=== PATIENT | female | born 2005 | race Caucasian/White ===

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

== ENCOUNTER 2023-11-13 00:16 | Emergency (ER) | payer OTHER ==
[2023-11-13 00:27] VITALS: BP 122/78; PULSE 87; RESP 20; TEMP 97.9; BMI 23.8
== END 2023-11-13 02:29 | disposition home or self-care (01) ==
LOC: JER 00:16
DX: S91.331A Puncture wound without foreign body, right foot, initial encounter (principal); X58.XXXA Exposure to other specified factors, initial encounter
CPT/HCPCS: 73630-TC-RT-FY; 99283-25

== ENCOUNTER 2025-01-02 14:22 | Day surgery (SDC) | payer OTHER ==
[2025-01-02 16:02] VITALS: BMI 24.3
[2025-01-02 16:22] LABS: BASO % 0.3 % (0-2.0); EOS % 3.5 % (0-4.5); HEMATOCRIT 38.3 % (32.4-45.2); HEMOGLOBIN 12.6 GM/dL (10.7-15.3); LYMPH % 32.1 % (8-40); MCH 30.5 pg (25.7-33.7); MEAN CELL VOLUME 92.5 fl (80-96); MEAN PLT VOLUME 10.1 fl (7.5-11.1); MONO % 6.1 % (3.8-10.2); PLATELET COUNT 210 10^3/uL (134-434); RBC 4.14 M/mm3 (3.60-5.2); RDW 13.6 % (11.6-15.6); WHITE BLOOD COUNT 7.9 K/mm3 (4.0-10.0)
[2025-01-02 16:32] LABS: INR 1.11 (0.83-1.09); PROTHROMBIN TIME (PATIENT) 12.2 SEC (9.7-13.0)
[2025-01-02 16:34] LABS: ACTIVATED PTT 31.7 SECONDS (25.2-36.5)
[2025-01-02 17:06] LABS: BLOOD UREA NITROGEN 10.5 mg/dL (7-18); CALCIUM 9.1 mg/dL (8.5-10.1)
[2025-01-02 17:10] LABS: CREATININE 0.6 mg/dL (0.55-1.3)
[2025-01-02 17:11] LABS: BILIRUBIN,TOTAL 0.3 mg/dL (0.2-1); TOT PROT 7.8 g/dl (6.4-8.2)
[2025-01-02] MEDS ORDERED: ACETAMINOPHEN 325 MG TABLET (FP) ONE (18:07)
[2025-01-02] MEDS: ACETAMINOPHEN 500 MG TABLET (FP) PO ONE (18:09)
[2025-01-02] MEDS: LACTATED RINGERS SOLUTION 1,000 ML/1,000 ML INFUS.BAG IV SCH (20:05)
[2025-01-02] MEDS ORDERED: ONDANSETRON 4 MG/2 ML VIAL IVPUSH PRN ×3 (20:14→22:16)
[2025-01-02] MEDS ORDERED: LACTATED RINGERS SOLUTION 1,000 ML IV SCH (20:15)
[2025-01-02] MEDS ORDERED: PROPOFOL 20 ML ONE (20:38)
[2025-01-02] MEDS ORDERED: ROCURONIUM BROMIDE 50 MG/5 ML SYRINGE ONE (20:38)
[2025-01-02] MEDS ORDERED: SUCCINYLCHOLINE CHLORIDE 200 MG/10 ML SYRINGE ONE (20:38)
[2025-01-02] MEDS ORDERED: MIDAZOLAM HCL 2 MG/2 ML SINGLE DOSE VIAL ONE (20:38)
[2025-01-02] MEDS: ceFAZolin SODIUM 1 GM VIAL IVPB ONE (20:50)
[2025-01-02] MEDS: BUPIVACAINE HCL/PF 0.5% (5 MG/ML) 30 ML VIAL IJ ONE (21:38)
[2025-01-02] MEDS ORDERED: NEOSTIGMINE METHYLSULFATE 0.5 MG/1 ML - 10 ML MDV ONE (21:39)
[2025-01-02] MEDS ORDERED: oxyCODONE HCL 5 MG TABLET PO PRN ×2 (22:05→22:16)
[2025-01-02] MEDS ORDERED: IBUPROFEN 800 MG/8 ML IJ IVPB PRN (22:05)
[2025-01-02] MEDS ORDERED: IBUPROFEN 600 MG TABLET (FP) PO PRN (22:05)
[2025-01-02] MEDS ORDERED: ELECTROLYTE-148 SOLN 1,000 ML IV SCH ×2 (22:15)
[2025-01-02] MEDS: IBUPROFEN 800 MG/8 ML IJ IVPB PRN (23:22)
[2025-01-03] MEDS: IBUPROFEN 600 MG TABLET (FP) PO PRN (04:43)
[2025-01-03 06:03] LABS: HEMATOCRIT 29.7 % (32.4-45.2); MCH 31.2 pg (25.7-33.7); MCHC 33.5 g/dl (32.0-36.0); MEAN PLT VOLUME 9.3 fl (7.5-11.1); PLATELET COUNT 188 10^3/uL (134-434); RDW 12.8 % (11.6-15.6); WHITE BLOOD COUNT 7.3 K/mm3 (4.0-10.0)
[2025-01-03 10:15] VITALS: BP 107/76; PULSE 78; RESP 17; TEMP 98.4
[2025-01-03 12:31] LABS: BASO % 0.3 % (0-2.0); HEMATOCRIT 28.1 % (32.4-45.2); HEMOGLOBIN 9.2 GM/dL (10.7-15.3); LYMPH % 26.3 % (8-40); MCH 30.5 pg (25.7-33.7); MCHC 32.6 g/dl (32.0-36.0); MEAN CELL VOLUME 93.4 fl (80-96); MEAN PLT VOLUME 9.5 fl (7.5-11.1); MONO % 6.6 % (3.8-10.2); NEUT % 66.8 % (42.8-82.8); PLATELET COUNT 194 10^3/uL (134-434); RBC 3.01 M/mm3 (3.60-5.2); RDW 12.8 % (11.6-15.6); WHITE BLOOD COUNT 9.5 K/mm3 (4.0-10.0)
== END 2025-01-03 13:30 | disposition home or self-care (01) ==
LOC: JER 14:22 → UNDOADMIN 19:06 → JERBED 19:06 → JASUSAT 22:05 → J3W 22:49 → UNDOADMIN 22:51 → J3W 22:51 → JASUSAT 22:51 → UNDODISIN 01-03 13:30
PROVIDERS: ATTEND Obstetrics & Gynecology
PROC: 3E03329 Introduction of Other Anti-infective into Peripheral Vein, Percutaneous Approach (ICD-10-PCS; 2025-01-02)
PROC: 3E033NZ Introduction of Analgesics, Hypnotics, Sedatives into Peripheral Vein, Percutaneous Approach (ICD-10-PCS; principal; 2025-01-02 20:00)
DX: O00.91 Unspecified ectopic pregnancy with intrauterine pregnancy (principal); R10.9 Unspecified abdominal pain
CPT/HCPCS: 36415; 76817-TC; 80053; 84702; 84703; 85025; 85027; 85610; 85730; 86850; 86900; 86901; 94760; 99285-25